=== PATIENT | female | born 1990 | race African-American/Black ===

== ENCOUNTER 2019-01-25 14:40 | Emergency (ER) | payer OTHER ==
--- NOTE | 2019-01-25 15:03 | PDOC ---
Rapid Medical Evaluation Chief Complaint: Head/Neck problem Time Seen by Provider: 01/25/19 15:00 Medical Evaluation: Allergies Allergy/AdvReac Type Severity Reaction Status Date / Time No Known Allergies Allergy Verified 05/09/13 02:26 01/25/19 15:01 I have performed a brief in-person evaluation of this patient. The patient presents with a chief complaint of: headache with tingling/ neck pain Pertinent physical exam findings: tight painful SCM/ neck muscles - palp reproduces I have ordered the following: UA/ UcG The patient will proceed to the ED for further evaluation. 01/25/19 15:02 Discharge Disposition - Diagnosis Tension headache - Referrals - Patient Instructions - Post Discharge Activity
[2019-01-25 15:04] VITALS: BP 124/85; PULSE 77; TEMP 98.5; BMI 40.9
[2019-01-25] MEDS ORDERED: KETOROLAC TROMETHAMINE 30 MG/1 ML VIAL IM ONE (15:45)
[2019-01-25] MEDS ORDERED: METOCLOPRAMIDE HCL 10 MG TABLET (FP) PO ONE ×2 (15:45→15:59)
--- NOTE | 2019-01-25 15:52 | PDOC ---
History of Present Illness - General Chief Complaint: Headache Stated Complaint: HEADACHE/PAIN Time Seen by Provider: 01/25/19 15:00 History Source: Patient Exam Limitations: Clinical Condition - History of Present Illness Initial Comments: 01/25/19 15:49 Patient with no significant past medical history present with complaint of 6 months history of intermittent headaches which has been worsening last 3 days with nausea but denies vomiting. Patient denies dizziness but report pressure behind bilateral eyes. Patient reports seeing PCP multiple times for symptoms and was told eye symptoms is likely from sinus infection and treated with antibiotics for symptoms keep coming back. Denies any trauma or injury to head or neck. Reported taking Tylenol for headache but does not help with headache. Timing/Duration: reports: other (3 days) Past History - Past Medical History Allergies/Adverse Reactions: Allergies Allergy/AdvReac Type Severity Reaction Status Date / Time No Known Allergies Allergy Verified 01/25/19 15:04 Home Medications: Ambulatory Orders Butalb/Acetaminophen/Caffeine [Fioricet 50-300-40 mg Capsule] 1 each PO Q6H PRN #20 capsule 01/25/19 Methocarbamol [Robaxin -] 500 mg PO BID PRN #10 tablet 01/25/19 COPD: No - Immunization History Immunization Up to Date: No - Suicide/Smoking/Psychosocial Hx Smoking Status: No Smoking History: Never smoked Have you smoked in the past 12 months: No Number of Cigarettes Smoked Daily: 1 Information on smoking cessation initiated: No Hx Alcohol Use: No Drug/Substance Use Hx: No Neuro Specific PMHX - Complaint Specific PMHX Glaucoma: No Herniated Disk: No Laminectomy: No Migraine: Yes Multiple Sclerosis: No Neuropathy: No TIA: No Review of Systems - Review of Systems Able to Perform ROS?: Yes Is the patient limited [place] proficient: No Constitutional: No: Malaise, Weakness HEENTM: Yes: See HPI. No: Symptoms Reported, Eye Pain, Blurred Vision, Tearing , Recent change in vision, Double Vision, Cataracts, Ear Pain, Ocular Prothesis , Ear Discharge, Nose Pain, Nose Congestion, Tinnitus, Nose Bleeding, Hearing Loss, Throat Pain, Throat Swelling, Mouth Pain, Dental Problems, Difficulty Swallowing, Mouth Swelling, Other Respiratory: No: Symptoms reported, See HPI, Cough, Orthopnea, Shortness of Breath, SOB with Exertion, SOB at Rest, Stridor, Wheezing, Productive cough, Hemoptysis, Other Cardiac (ROS): No: Symptoms Reported, See HPI, Chest Pain, Edema, Irregular Heart Rate, Lightheadedness, Palpitations, Syncope, Chest Tightness, Other ABD/GI: Yes: Nausea. No: Vomiting Integumentary: No: Symptoms Reported, Rash Neurological: Yes: Symptoms reported, See HPI, Headache. No: Numbness, Paresthesia, Pre-Existing Deficit, Seizure, Weakness, Unsteady Gait, Dizziness All Other Systems: Reviewed and Negative *Physical Exam - Vital Signs Last Vital Signs Temp Pulse Resp BP Pulse Ox 98.5 F 77 17 124/85 100 01/25/19 15:01 01/25/19 15:01 01/25/19 15:01 01/25/19 15:01 01/25/19 15:01 - Physical Exam Comments: 01/25/19 15:55 GENERAL: Well developed, well nourished. Awake and alert. No acute distress. HEENT: Normocephalic, atraumatic. PERRLA, EOMI. No conjunctival pallor. Sclera are non- icteric. Moist mucous membranes. Oropharynx is clear. NECK: Supple. Full ROM. No JVD. Carotid pulses 2+ and symmetric, without bruits. No thyromegaly. No lymphadenopathy. CARDIOVASCULAR: Regular rate and rhythm. No murmurs, rubs, or gallops. Distal pulses are 2+ and symmetric. PULMONARY: No evidence of respiratory distress. Lungs clear to auscultation bilaterally. No wheezing, rales or rhonchi. MUSCULOSKELETAL Normal range of motion at all joints. No bony deformities or tenderness. SKIN: Warm and dry. Normal capillary refill. No rashes. NEUROLOGICAL: Alert, awake, appropriate. Cranial nerves 2-12 intact. No motor deficits in the in face, upper extremities and lower extremities. Normal speech. Toes are down-going bilaterally. Gait is normal without ataxia. PSYCHIATRIC: Cooperative. Good eye contact. Appropriate mood and affect. General Appearance: Yes: Nourished, Appropriately Dressed. No: Apparent Distress Medical Decision Making - Medical Decision Making 01/25/19 15:52 Patient with no significant past medical history present with complaint of 6 months history of intermittent headaches which has been worsening last 3 days with nausea but denies vomiting. Patient denies dizziness but report pressure behind bilateral eyes. Patient reports seeing PCP multiple times for symptoms and was told eye symptoms is likely from sinus infection and treated with antibiotics for symptoms keep coming back. Denies any trauma or injury to head or neck. Reported taking Tylenol for headache but does not help with headache. Clinical exam unremarkable with normal neuro exam. Symptoms likely migraine headache with aura versus less likely intracranial pathology. Toradol 30 mg IM and Reglan 10 mg by mouth ordered for migraine. Urine hCG lab ordered. Head CT without contrast ordered to rule out intracranial pathology 01/25/19 17:[address] unremarkable. Patient symptoms likely migraine headache. Patient is stable for discharge on Fioricet when necessary for headache with neurology follow-up. *DC/Admit/Observation/Transfer Diagnosis at time of Disposition: Tension headache - Discharge Dispostion Disposition: HOME Condition at time of disposition: Stable Decision to Admit order: No - Prescriptions Prescriptions: Butalb/Acetaminophen/Caffeine [Fioricet 50-300-40 mg Capsule] 1 each PO Q6H PRN #20 capsule PRN Reason: headache Methocarbamol [Robaxin -] 500 mg PO BID PRN #10 tablet PRN Reason: neck spasm - Referrals Referrals: Kirby Porter MD [Staff Physician] - - Patient Instructions Printed Discharge Instructions: Migraine -- Adult Additional Instructions: Your head CAT scan was normal. Your symptoms likely from migraine headache. Take prescribed medication as prescribed. Follow-up referred neurologist - Post Discharge Activity
[2019-01-25] MEDS ORDERED: KETOROLAC TROMETHAMINE 30 MG/1 ML VIAL ONE (16:00)
[2019-01-25 16:24] LABS: URINE APPEARANCE CLEAR; URINE BILIRUBIN NEGATIVE (NEGATIVE); URINE COLOR YELLOW; URINE GLUCOSE (UA) NEGATIVE (NEGATIVE); URINE KETONE NEGATIVE (NEGATIVE); URINE LEUK ESTERASE NEGATIVE (NEGATIVE); URINE NITRITE NEGATIVE (NEGATIVE); URINE PROTEIN NEGATIVE (NEGATIVE); URINE UROBILINOGEN 0.2 mg/dL (0.2-1.0)
[2019-01-25] MEDS ORDERED: ACETAMINOPHEN/CAFFEINE/BUTALBITAL 1 TAB PO ONE (16:47)
[2019-01-25 16:49] LABS: HCG,QUALITATIVE URINE NEGATIVE
[2019-01-25] MEDS ORDERED: ACETAMINOPHEN/CAFFEINE/BUTALBITAL 1 TAB ONE (17:00)
== END 2019-01-25 17:36 | disposition home or self-care (01) ==
LOC: JER 14:40 → JERFT 14:40
DX: G44.209 Tension-type headache, unspecified, not intractable (principal)
CPT/HCPCS: 70450-TC; 81003; 84703; 99281-25

== ENCOUNTER 2019-06-01 16:23 | Emergency (ER) | payer OTHER ==
[2019-06-01 16:28] VITALS: BP 146/75; PULSE 98; TEMP 98; BMI 40.7
--- NOTE | 2019-06-01 16:29 | PDOC ---
Rapid Medical Evaluation Time Seen by Provider: 06/01/19 16:27 Medical Evaluation: Allergies Allergy/AdvReac Type Severity Reaction Status Date / Time No Known Allergies Allergy Verified 01/25/19 15:04 06/01/19 16:28 I have performed a brief in-person evaluation of this patient Chief complaint: Left breast pain x 1 month Pertinent PE findings: stable, NAD, non-focal I have ordered the following: ecg The patient will proceed to the ED for further evaluation. I have performed a brief in-person evaluation of this patient. Discharge Disposition - Diagnosis Breast pain, left - Referrals - Patient Instructions - Post Discharge Activity
[2019-06-01] MEDS ORDERED: IBUPROFEN 400 MG TABLET (FP) PO ONE ×2 (17:16→17:21)
--- NOTE | 2019-06-01 17:27 | PDOC ---
History of Present Illness - General Chief Complaint: Pain Stated Complaint: CHEST PAIN Time Seen by Provider: 06/01/19 16:27 History Source: Patient Exam Limitations: No Limitations Past History - Past Medical History Allergies/Adverse Reactions: Allergies Allergy/AdvReac Type Severity Reaction Status Date / Time No Known Allergies Allergy Verified 06/01/19 16:29 Home Medications: Ambulatory Orders NK [No Known Home Medication] 06/01/19 COPD: No - Immunization History Immunization Up to Date: No - Psycho Social/Smoking Cessation Hx Smoking Status: No Smoking History: Never smoked Have you smoked in the past 12 months: No Number of Cigarettes Smoked Daily: 1 Hx Alcohol Use: No Drug/Substance Use Hx: No *Physical Exam - Vital Signs Last Vital Signs Temp Pulse Resp BP Pulse Ox 98 F 98 H 18 146/75 100 06/01/19 16:25 06/01/19 16:25 06/01/19 16:25 06/01/19 16:25 06/01/19 16:25 - Physical Exam General Appearance: No: Apparent Distress Respiratory/Chest: positive: Lungs Clear, Normal Breath Sounds. negative: Respiratory Distress Cardiovascular: positive: Regular Rhythm, Regular Rate, S1, S2. negative: Murmur Integumentary: positive: Normal Color, Other (R breast - no skin dimpling, no masses, no nipple inversion, no lymphadenopathy) Neurologic: positive: Alert Medical Decision Making - Medical Decision Making 29 y/o F with no sig pmh presents with L breast pain x 1.5 months. Saw her PCP last week who did a physical exam, but no ultrasound. Patient comes here requesting ultrasound. Patient has not seen her [employer] and has not tried taking any pain meds at home. Denies fever, sob, cp, abd pain, n/v, other complaints. EKG: NSR at 98 bpm, no ST-T changes No risk factors for ACS No red flags on exam; no concern for abscess or mass Will refer to [employer] and have f/u as outpatient for sonogram 06/01/19 17:24 Discharge - Discharge Information Problems reviewed: Yes Clinical Impression/Diagnosis: Breast pain, left Condition: Stable Disposition: HOME - Admission No - Additional Discharge Information Prescription Drug Monitoring Program (I-STOP) results: I-STOP not reviewed - Follow up/Referral Referrals: Izzy Toledo MD [Staff Physician] - 2 Days - Patient Discharge Instructions Patient Printed Discharge Instructions: DI for Breast Pain (Mastalgia) Additional Instructions: Thank you for choosing [facility]. It was a pleasure taking care of you. You may take Tylenol 650 mg or Motrin 600 mg every 6 hours by mouth as needed for mild to moderate pain. Take Motrin with food. Do not take more than 4000 mg of Tylenol in 1 day. You were referred to [employer] for further evaluation and to get outpatient sonogram Return to the Emergency Department if your symptoms worsen or persist, you have fever, shortness of breath, chest pain, severe abdominal pain, vomiting or other concerning symptoms. - Post Discharge Activity
--- NOTE | 2019-06-02 13:12 | EKG ---
Test Reason : Blood Pressure : / mmHG Vent. Rate : 096 BPM Atrial Rate : 096 BPM P-R Int : 156 ms QRS Dur : 086 ms QT Int : 362 ms P-R-T Axes : 080 067 058 degrees QTc Int : 457 ms NORMAL SINUS RHYTHM POSSIBLE LEFT ATRIAL ENLARGEMENT NO PREVIOUS ECGS AVAILABLE Confirmed by CORNELL NATHAN MD ([id number]) on 06/02/2019 1:12:06 PM Referred By: Confirmed By:CORNELL NATHAN MD
== END 2019-06-01 17:36 | disposition home or self-care (01) ==
LOC: JERFT 16:23
DX: N64.4 Mastodynia (principal)
CPT/HCPCS: 93005; 93010; 99282-25

== ENCOUNTER 2019-08-24 15:35 | Emergency (ER) | payer OTHER ==
[2019-08-24 16:06] VITALS: BP 114/62; PULSE 77; TEMP 98.7; BMI 42.5
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
[2019-08-24] MEDS ORDERED: IBUPROFEN 600 MG TABLET (FP) PO ONE ×2 (18:43→18:47)
== END 2019-08-24 18:48 | disposition home or self-care (01) ==
LOC: JERFT 15:35
DX: R51 Headache (principal)
CPT/HCPCS: 70450-TC; 99284-25